=== PATIENT | male | born 1950 | race Caucasian/White ===

== ENCOUNTER 2017-11-18 19:06 | Emergency (ER) | payer BC ==
[~2017-11-18] VITALS: Ht 175.3 cm; Wt 107.8 kg
[2017-11-18 22:08] LABS: BASOPHIL (%) 0.9 % (0-1); BASOPHIL COUNT 0.1 K/uL (0-0.1); EOSINOPHIL (%) 8.2 % (0-5); EOSINOPHIL COUNT 0.8 K/uL (0-0.3); HEMATOCRIT 37.3 % (38.0-50.0); HEMOGLOBIN 12.3 G/DL (12.5-16.6); IMMATURE GRANULOCYTE (%) 0.3 % (0.0-0.7); LYMPHOCYTE (%) 21.3 % (15-42); LYMPHOCYTE COUNT 2.1 K/uL (1.0-2.8); MCH 30.9 PG (29.0-34.0); MCV 93.7 FL (86-99); MONOCYTE (%) 9.2 % (3-12); MONOCYTE COUNT 0.9 K/uL (0-0.8); NEUTROPHIL (%) 60.1 % (45-76); PLATELET COUNT 259 K/uL (156-360); RBC DIS.WIDTH-CV 13.2 % (11.8-14.6); RBC DIS.WIDTH-SD 45.1 % (39-53); RED BLOOD COUNT 3.98 M/uL (4.00-5.50)
[2017-11-18 22:17] LABS: CHLORIDE 110 mEq/L (99-109); POTASSIUM 3.8 mEq/L (3.7-5.4); SODIUM 139 mEq/L (136-147)
[2017-11-18 22:19] LABS: GLUCOSE 119 mg/dL (70-99)
[2017-11-18 22:23] LABS: CREATININE 1.4 mg/dL (0.6-1.3); GFR ESTIMATE (CALCULATED) 54 mL/min/ (58.99-99999)
[2017-11-18 22:24] LABS: UREA NITROGEN (BUN) 23 mg/dL (9-23)
[2017-11-19] MEDS ORDERED: BACTRIM,SEPT1 TABLET PO (00:03)
[2017-11-19] MEDS ORDERED: TINACTIN108 GM TP (00:03)
[2017-11-19] MEDS ORDERED: PREDNISONE20 MG PO (00:04)
[2017-11-19] MEDS ORDERED: ZANTAC150 MG PO (00:04)
[2017-11-19] MEDS ORDERED: ATARAX,VISTARIL25 MG PO (00:04)
[2017-11-19 00:39] VITALS: BP 144/70
== END 2017-11-19 00:44 | disposition home or self-care (01) ==
LOC: EME 19:06
PROVIDERS: Physician Assistant
DX: L03.116 Cellulitis of left lower limb (principal); L03.115 Cellulitis of right lower limb; B35.3 Tinea pedis; T78.40XA Allergy, unspecified, initial encounter; X58.XXXA Exposure to other specified factors, initial encounter; R21 Rash and other nonspecific skin eruption; R22.0 Localized swelling, mass and lump, head; Z88.0 Allergy status to penicillin
CPT/HCPCS: 80048; 85025; 99281; 99285; J0696; J2930; Q0177; S0028

== ENCOUNTER 2017-12-14 10:11 | Emergency (ER) | payer BC ==
[~2017-12-14] VITALS: Ht 175.3 cm; Wt 105.9 kg
[~2017-12-14 10:11] MED LIST: ATARAX,VISTARIL25 MG PO; BACTRIM,SEPT1 TABLET PO; PREDNISONE20 MG PO; TINACTIN108 GM TP; ZANTAC150 MG PO
[2017-12-14 10:48] LABS: HEMATOCRIT 38.8 % (38.0-50.0); HEMOGLOBIN 12.9 G/DL (12.5-16.6); MCH 31.1 PG (29.0-34.0); MCHC 33.2 G/DL (30.0-36.0); MCV 93.5 FL (86-99); PLATELET COUNT 300 K/uL (156-360); RBC DIS.WIDTH-CV 13.3 % (11.8-14.6); RBC DIS.WIDTH-SD 45.6 % (39-53); RED BLOOD COUNT 4.15 M/uL (4.00-5.50); WHITE BLOOD COUNT 9.4 K/uL (4.1-10.2)
[2017-12-14 11:02] LABS: ALBUMIN 4.1 g/dL (3.2-4.8); CHLORIDE 110 mEq/L (99-109); POTASSIUM 3.6 mEq/L (3.7-5.4); SODIUM 141 mEq/L (136-147)
[2017-12-14 11:04] LABS: GLUCOSE 94 mg/dL (70-99); TOTAL PROTEIN 7.5 g/dL (6.4-8.3)
[2017-12-14 11:06] LABS: TOTAL BILIRUBIN 0.4 mg/dL (0.0-1.0)
[2017-12-14 11:08] LABS: ALKALINE PHOSPHATASE 101 IU/L (3-129); CREATININE 1.1 mg/dL (0.6-1.3); GFR ESTIMATE (CALCULATED) > 59 mL/min/ (58.99-99999)
[2017-12-14 11:09] LABS: AST (GOT) 18 IU/L (2-34); UREA NITROGEN (BUN) 14 mg/dL (9-23)
[2017-12-14 11:11] LABS: ALT (GPT) 21 IU/L (3-49)
[2017-12-14 13:34] VITALS: BP 00/00
== END 2017-12-14 13:40 | disposition home or self-care (01) ==
LOC: EME 10:11
DX: M25.475 Effusion, left foot (principal); M25.474 Effusion, right foot; L20.9 Atopic dermatitis, unspecified; Z88.0 Allergy status to penicillin
CPT/HCPCS: 80053; 81003; 83605; 85027; 99281; 99283

== ENCOUNTER 2017-12-27 14:03 | Emergency (ER) | payer BC ==
[~2017-12-27] VITALS: Ht 175.3 cm; Wt 104.6 kg
[2017-12-27 14:32] LABS: HEMATOCRIT 36.6 % (38.0-50.0); HEMOGLOBIN 12.2 G/DL (12.5-16.6); MCH 31.2 PG (29.0-34.0); MCHC 33.3 G/DL (30.0-36.0); MCV 93.6 FL (86-99); PLATELET COUNT 363 K/uL (156-360); RBC DIS.WIDTH-CV 13.2 % (11.8-14.6); RBC DIS.WIDTH-SD 44.9 % (39-53); RED BLOOD COUNT 3.91 M/uL (4.00-5.50); WHITE BLOOD COUNT 9.6 K/uL (4.1-10.2)
[2017-12-27 14:41] LABS: CHLORIDE 108 mEq/L (99-109); POTASSIUM 3.8 mEq/L (3.7-5.4); SODIUM 141 mEq/L (136-147)
[2017-12-27 14:43] LABS: GLUCOSE 89 mg/dL (70-99)
[2017-12-27 14:47] LABS: GFR ESTIMATE (CALCULATED) > 59 mL/min/ (58.99-99999)
[2017-12-27 14:48] LABS: UREA NITROGEN (BUN) 11 mg/dL (9-23)
[2017-12-27 16:43] LABS: ALBUMIN 3.8 g/dL (3.2-4.8)
[2017-12-27 16:48] LABS: TOTAL BILIRUBIN 0.3 mg/dL (0.0-1.0)
[2017-12-27 16:49] LABS: ALKALINE PHOSPHATASE 85 IU/L (3-129)
[2017-12-27 16:52] LABS: ALT (GPT) 16 IU/L (3-49); AST (GOT) 15 IU/L (2-34); DIRECT BILIRUBIN 0.1 mg/dL (0.0-0.3)
[2017-12-27] MEDS ORDERED: VASHE WOUND S1000 ML IR (17:26)
[2017-12-27 18:16] VITALS: BP 157/69
== END 2017-12-27 18:16 | disposition home or self-care (01) ==
LOC: EME 14:03
DX: B35.3 Tinea pedis (principal); Z88.0 Allergy status to penicillin
CPT/HCPCS: 80048; 80076; 85027; 99281; 99284